=== PATIENT | female | born 1935 | race Caucasian/White ===

== ENCOUNTER → 2016-06-15 | Outpatient (CLI) | payer OTHER, BC | LOC: MMPC 10:00 | PROVIDERS: ATTEND Podiatrist Foot & Ankle Surgery | DX: M79.674 Pain in right toe(s) (principal); M20.41 Other hammer toe(s) (acquired), right foot; M20.42 Other hammer toe(s) (acquired), left foot | CPT/HCPCS: 99203; G0463 ==

== ENCOUNTER 2016-06-29 06:53 | Observation (INO) | payer OTHER, BC ==
[~2016-06-29 06:53] MED LIST: LIDOCAINE W/ SODIUM BICARB 0.5 ML SYR ONE; Lactated Ringers 1,000 ML PRIMARY IV ONE; ceFAZolin Inj 2gm (Premix) 50 ML IV ONE
[2016-06-29] MEDS ORDERED: BUPivacaine Inj 0.5% PF (5mg/ml) 10ml vial ONE (07:44)
[2016-06-29] MEDS ORDERED: Lidocaine Inj 1% 20 ML ONE (07:45)
[2016-06-29] MEDS ORDERED: fentaNYL Inj 100 MCG/2 ML VIAL ONE (08:38)
[2016-06-29] MEDS ORDERED: MIDAZOLAM 5 MG/1 ML ONE (08:38)
[2016-06-29] MEDS ORDERED: KETAMINE 100 MG/1 ML - 5 ML ONE (08:38)
[2016-06-29] MEDS ORDERED: MOXIFLOXACIN 400 MG TABLET PO SCH ×2 (09:00→16:00)
[2016-06-29] MEDS ORDERED: ONDANSETRON 4 MG/2 ML VIAL ONE (11:02)
[2016-06-29] MEDS ORDERED: NORMAL SALINE 10 ML SYRINGE FLUSH IVP PRN ×2 (11:02→13:43)
[2016-06-29] MEDS ORDERED: ONDANSETRON 4 MG/2 ML VIAL IVP ONE (11:25)
[2016-06-29] MEDS ORDERED: IPRATROPIUM/ALBUTEROL SULFATE 3 ML NEB NEB ONE (11:37)
--- NOTE | 2016-06-29 11:38 | GEN.OPNOTE ---
Operative Report Surgeon: Dr. Iron Fried Anesthesia Type: Local, MAC Anesthesia Provider: Mary Hill CRNA Surgery Date: 06/29/16 Preoperative Diagnosis: Hammertoes 2nd digit b/l and 3rd digit left foot Postoperative Diagnosis: same Estimated Blood Loss (mL): 0 Description of Procedure: Under mild sedation the patient was wheeled into the operating room placed on the operating table in supine position a well-padded pneumatic ankle tourniquet was placed about b/l ankles the foot was prepped scrubbed and draped in the usual aseptic manner. Local anesthesia was then used to do a ray blocks of the second digits b/l and third digit on the left foot, with a 1:1 mixture of lidocaine and Marcaine, approximately 15 mL was used. We then used Esmarch bandage to exsanguinate the Rt foot and the ankle tourniquet was inflated. Attention was directed the dorsal aspect of the second digit where linear longitudinal incision was made approximately 4 cm in length the incision was carried down to the level of the PIP joint were arthroplasty of the head of the proximal phalanx was performed and also the base of the middle phalanx. Once this was performed attention was directed to the MP joint where the long extensor tendon was lengthened with a Z-plasty lengthening technique the tendon of the extensor digitorum brevis was also transected. Once this been accomplished the area was flushed K wire was inserted through the middle phalanx out the end of the distal phalanx and retrograded on the proximal phalanx on the second and third digits. The capsule was then reapproximated at the PIP joint with 4-0 nylon on bilateral toes. Once this was accomplished the subcutaneous tissue was reapproximated with 4-0 Vicryl skin was reapproximated and coapted with 4-0 nylon in a running suture technique. The ankle tourniquet was deflated and proper hyperemic response was noted to the toe dry sterile bandage was applied consisting of Mastisol Steri-Strips 4 x 4 gauze, Kerlix and Coban. Attention was then directed the 2nd and 3rd digits on the left foot. Esmarch bandage was used to exsanguinate the foot and the Ankle tourniquet was inflated. An incision approximately 1 cm in length was made over the MP joint this was carried down to level of the long extensor tendon on the left third and fourth digits the tendon was then released with a Igiugig blade. The skin was reapproximated and coapted with 4-0 nylon. Attention was then directed to the plantar aspect of the second digit on the left foot at the DIP joint where a 5mm incision was made and was carried down to level of the long flexor tendon which was transected with a bever blade once this was accomplished the skin was reapproximated and coapted with 4-0 nylon. Local anesthesia was then injected into the first second third interspaces on the left foot consisting of 15 cc of local. Ankle tourniquet was deflated on the left foot and proper hyperemic response noted to the toes. A dry sterile dressing was applied consisting of Adaptic 4 x 4 gauze Kerlix and Coban. Patient tolerated the procedure well following a brief period of postoperative monitoring the patient will be discharged home with written and oral postoperative instructions.
[2016-06-29] MEDS ORDERED: IPRATROPIUM/ALBUTEROL SULFATE 3 ML NEB NEB PRN (11:43)
[2016-06-29] MEDS ORDERED: DEXAMETHASONE SOD PHOSPHATE 4 MG/1 ML VIAL ONE (11:47)
[2016-06-29] MEDS: Prochlorperazine Edisylate Inj 10mg/2ml vial IVP PRN ×2 (12:14→12:39)
--- NOTE | 2016-06-29 12:37 | DI ---
AP CHEST X-RAY, 06/29/2016 11:56 AM : Clinical History: Aspiration during anesthesia. Previous Exam: None at this facility. There is no acute soft tissue or bony abnormality. Mild cardiomegaly is present without CHF. There is a right lower lobe infiltrate consistent with the clinical diagnosis of aspiration. There is a moder ate sized hiatal hernia. Mediastinal structures are otherwise normal. There are no pulmonary nodules. Readin. Right lower lobe aspiration pneumonitis. 2. Mild cardiomegaly without CHF. 3. Moderate-sized hiatal hernia.
[2016-06-29] MEDS ORDERED: LIDOCAINE W/ SODIUM BICARB 0.5 ML SYR SUBD PRN (13:43)
[2016-06-29] MEDS ORDERED: ONDANSETRON 4 MG/2 ML VIAL IVP PRN (13:43)
[2016-06-29] MEDS: Sodium Chloride 0.9% 1,000 ML PRIMARY IV SCH (15:03)
[2016-06-29 16:31] LABS: BASOPHILS # (AUTO) 0.01 10*3/UL; BASOPHILS % (AUTO) 0.1 % (0-1); EOSINOPHILS # (AUTO) 0 10*3/UL; EOSINOPHILS % (AUTO) 0 % (0-8); HEMATOCRIT 39.1 % (37.0-47.0); LYMPHOCYTES # (AUTO) 0.28 10*3/uL; MEAN CORPUSCULAR HEMOGLOBIN 29.2 PG (27-31); MEAN CORPUSCULAR HGB CONC 33.2 g/dL (33-37); MEAN CORPUSCULAR VOLUME 87.9 FL (81-99); MONOCYTES # (AUTO) 0.72 10*3/UL (0.3-0.8); MONOCYTES % (AUTO) 5.9 % (5-15); NEUTROPHILS # (AUTO) 11.13 10*3/UL; NEUTROPHILS % (AUTO) 91.4 % (50-80); RED BLOOD COUNT 4.45 10^6/uL (4.20-5.40)
[2016-06-29 16:39] LABS: CALCIUM 8.5 mg/dL (8.7-10.7); SERUM ALBUMIN 3.2 g/dL (3.5-4.8)
[2016-06-29 16:53] LABS: PLATELET MORPHOLOGY COMMENT NORMAL MORPHOLOGY (NORM); RBC MORPHOLOGY COMMENT NORMAL MORPHOLOGY (NORM); WBC MORPHOLOGY COMMENT NORMAL MORPHOLOGY (NORM)
--- NOTE | 2016-06-29 17:16 | PDOC ---
History and Physical - History of Present Illness Chief Complaint: Shortness of breath aspiration postop History of Present Illness: This very nice 80-year-old female with past medical history significant for depression, hypertension, hypothyroidism, arthritis comes into the hospital admitted by Dr. Fried for outpatient bilateral second digit and third digit hammertoe surgery. Apparently she aspirated and I was called by the nurse clin tech to admit the patient she is doing quite well now eating her dinner she told me she was very cold downstairs in and now she is feeling back to her normal self satting at 96% on 1 L denies chest pain shortness of breath nausea or vomiting Past Medical History Medical History: Hypertension, hypothyroidism, arthritis, depression, hypertension, hypothyroidism Surgical History: Status post hammertoe surgery bilateral second digit as well as third digit hammertoe had cataract surgery, partial removal of colon, hysterectomy Tobacco Use: Never Smoker Substance Use Type: None Medication / Allergies Home Medications: Home Medications Medication Instructions Recorded Confirmed Type Citalopram Hydrobromide 1 tab PO DAILY tab 06/15/16 06/29/16 History [Citalopram Hbr] Diltiazem HCl [Diltiazem 12hr Er] 120 mg PO BID cap 06/15/16 06/29/16 History Levothyroxine Sodium 1 tab PO DAILY tab 06/15/16 06/29/16 History Trimethoprim 100 mg PO QD tab 06/15/16 06/29/16 History Hydrocodone/Acetaminophen 1 - 2 tab PO Q4-6H #35 tab 06/16/16 06/29/16 Clinic [Hydrocodon-Acetaminophen 5-325] Hydrocodone Bit/Acetaminophen 1 - 2 tab PO Q4H PRN #38 tab 06/29/16 Rx [Hydrocodon-Acetaminophen 5-325] Allergies/Adverse Reactions: Allergies Allergy/AdvReac Type Severity Reaction Status Date / Time No Known Allergies Allergy Verified 06/29/16 07:13 Review of Systems - Review of Systems All Systems: Reviewed & No Additional Complaints Except as Stated - Constitutional Constitutional: DENIES: Negative System Review, General Health Excellent, General Health Good, General Health Fair, General Health Poor, Weight Loss, Weight Gain, Weight Change Intentional, Fever/Chills, Night Sweats, Fatigue, Diffuse Arthralgias, Diffuse Myalgias, Malaise, Weakness, Recent Illness, Other , See HPI - Respiratory Respiratory: DENIES: Negative System Review, Cough, Sputum, Dyspnea At Rest, Dyspnea with Exertion, Pleuritic Pain, Hemoptysis, Wheezing, Other, See HPI - Cardiovascular Cardiovascular: DENIES: Negative System Review, Chest Pain, Edema, Syncope, Palpitations, Orthopnea, Paroxysmal Nocturnal Dyspnea, Other, See HPI - Gastrointestinal Gastrointestinal / Abdominal: DENIES: Negative System Review, Nausea, Vomiting, Diarrhea, Constipation, Abdominal Pain, Bloody Stool, Poor Appetite, Heartburn, Regurgitation, Bloating, Lactose Intolerance, Melena, Bright Red Blood Per Rectum, Other, See HPI Exam - Vitals Vital Signs: Vital Signs Temperature 97 F Temperature Source Temporal Artery Scan Pulse Rate [Pulse Oximeter] 72 Pulse Rate 55 Respiratory Rate 17 Blood Pressure [Left Arm] 122/64 Blood Pressure 169/75 Pulse Ox 93 Oxygen Flow Rate 2 Oxygen Delivery Method Nasal Cannula Height 5 ft 6 in Weight 80.739 kg - General General Appearance: POSITIVE: No Acute Distress, Cooperative - Head Head Exam: POSITIVE: Normal Inspection, Normocephalic, Atraumatic - Eye Eye Exam: POSITIVE: Normal Appearance, PERRL, EOMI - Neck Neck Exam: POSITIVE: Normal Inspection, Full ROM - Respiratory Respiratory Exam: POSITIVE: Clear to Auscultation - Bilaterally, Breathing Non Labored, Normal To Percussion, Normal to Percussion and Palpation - Cardiovascular Cardiovascular Exam: POSITIVE: RRR, No Murmur, No Clicks, No Gallops - GI/Abdominal GI/Abdominal Exam: POSITIVE: Non Tender, Non Distended, Soft - Extremities Extremities Exam: POSITIVE: No Clubbing Present, No Edema Present Results - Labs CBC and BMP: 06/29/16 16:27 06/29/16 16:27 Labs - Last 24 Hours: Laboratory Results 06/29/16 Range/Units 16:27 WBC 12.18 H (4.8-10.8) 10^3/uL RBC 4.45 (4.20-5.40) 10^6/uL Hgb 13.0 (12.0-16.0) g/dL Hct 39.1 (37.0-47.0) % MCV 87.9 (81-99) FL MCH 29.2 (27-31) PG MCHC 33.2 (33-37) g/dL RDW Std Deviation 42.1 (39-50) fL RDW Coeff of Nayely 13.3 (11.5-14.5) % Plt Count 265 (140-350) 10*3/uL MPV 9.0 (7.4-12.2) FL Immature Gran % (Auto) 0.3 (0-5) % Neut % (Auto) 91.4 H (50-80) % Lymph % (Auto) 2.3 L (10-50) % [place] % (Auto) 5.9 (5-15) % Eos % (Auto) 0 (0-8) % Baso % (Auto) 0.1 (0-1) % Immature Gran # (Auto) 0.04 10*3/UL Neut # (Auto) 11.13 10*3/UL Lymph # (Auto) 0.28 10*3/uL [place] # (Auto) 0.72 (0.3-0.8) 10*3/UL Eos # (Auto) 0 10*3/UL Baso # (Auto) 0.01 10*3/UL WBC Morphology Comment Normal morphology (NORM) Plt Morphology Comment Normal morphology (NORM) RBC Morph Comment Normal morphology (NORM) Sodium 134 L (135-145) meq/L Potassium 3.6 L (3.8-5.2) meq/L Chloride 102 (98-112) meq/L Carbon Dioxide 26 (23-33) meq/L Anion Gap 6 (5-20) BUN 14 (7-22) mg/dL Creatinine 0.7 (0.50-1.20) mg/dL Estimated GFR (>60 ml/min/1.73m(2)) BUN/Creatinine Ratio 20.00 (6-20) Glucose 120 H (78-110) mg/dL Calculated Osmolality 279.0 (267-292) mOsm/kg Calcium 8.5 L (8.7-10.7) mg/dL Total Bilirubin 0.8 (0.3-1.2) mg/dL AST 20 (8-39) IU/L ALT 24 (9-52) IU/L Alkaline Phosphatase 59 (38-126) IU/L Total Protein 6.2 (6.1-8.0) g/dL Albumin 3.2 L (3.5-4.8) g/dL Globulin 3.0 (2.50-4.10) g/dL Albumin/Globulin Ratio 1.00 L (1.3-2.0) mg/g Assessment and Plan - Patient Problems (1) Aspiration pneumonitis Current Visit: Yes Status: Acute Comment: Infiltrate on x-ray and doubt this is bacterial nevertheless does have a white count with a left shift will start Avelox 400 mg by mouth for 7 days total (2) Hypokalemia Current Visit: Yes Status: Acute Comment: Place of 40 [address] twice a day (3) Hypothyroidism Current Visit: Yes Status: Acute Comment: Continue usual meds Photo / Body Diagrams - Uploaded Photos Uploaded Photos:
[2016-06-29] MEDS ORDERED: HYDROcodone-APAP 5 MG -325 MG TABLET PO PRN (19:41)
[2016-06-29] MEDS: HYDROcodone-APAP 5 MG -325 MG TABLET PO SCH (19:43)
[2016-06-29] MEDS: POTASSIUM CHLORIDE 20 MEQ TAB PO SCH (19:58)
[2016-06-29] MEDS: DILTIAZEM HCL 120 MG PO SCH (20:01)
[2016-06-30] MEDS: Sodium Chloride 0.9% 1,000 ML PRIMARY IV SCH ×2 (01:31→05:03)
[2016-06-30] MEDS: LEVOTHYROXINE 88 MCG TABLET PO SCH ×2 (04:14→05:02)
[2016-06-30 05:05] LABS: BASOPHILS # (AUTO) 0 10*3/UL; BASOPHILS % (AUTO) 0 % (0-1); EOSINOPHILS # (AUTO) 0 10*3/UL; EOSINOPHILS % (AUTO) 0 % (0-8); HEMATOCRIT 37.2 % (37.0-47.0); HEMOGLOBIN 12.3 g/dL (12.0-16.0); LYMPHOCYTES # (AUTO) 0.99 10*3/uL; MEAN CORPUSCULAR HEMOGLOBIN 29.3 PG (27-31); MEAN CORPUSCULAR HGB CONC 33.1 g/dL (33-37); MEAN CORPUSCULAR VOLUME 88.6 FL (81-99); MEAN PLATELET VOLUME 9.9 FL (7.4-12.2); MONOCYTES # (AUTO) 1.13 10*3/UL (0.3-0.8); MONOCYTES % (AUTO) 5.8 % (5-15); NEUTROPHILS # (AUTO) 17.46 10*3/UL; NEUTROPHILS % (AUTO) 88.9 % (50-80)
[2016-06-30 05:10] LABS: PLATELET MORPHOLOGY COMMENT NORMAL MORPHOLOGY (NORM); RBC MORPHOLOGY COMMENT NORMAL MORPHOLOGY (NORM); WBC MORPHOLOGY COMMENT NORMAL MORPHOLOGY (NORM)
[2016-06-30 05:12] LABS: BUN/CREATININE RATIO 21.66 (6-20); CALCIUM 8.6 mg/dL (8.7-10.7)
[2016-06-30 07:47] VITALS: RESP 20; TEMP 97.2
--- NOTE | 2016-06-30 08:44 | CRNA.PROGR ---
Anesthesia Note Anesthesia Progress Note: Sitting up in chair eating breakfast. She's cheerful. No oxygen supplementation. Room air SPO2--91%. Denies shortness of breath. Went over cause of her coughing-aspiration. She's pleased with care. I anticipate her going home today. Vital Signs (24 hrs) Temp Pulse Resp BP Pulse Ox 06/30/16 07:45 97.2 F 76 20 126/49 92 06/30/16 05:17 92 06/30/16 04:52 98.3 F 77 18 124/49 92 06/30/16 01:00 97.8 F 72 16 122/44 90 06/29/16 21:00 98.1 F 71 16 135/54 91 06/29/16 16:20 97 F 72 17 122/64 93 06/29/16 15:34 96 06/29/16 13:57 98.9 F 81 28 H 138/46 89 Mary Hill MS, [employer]
[2016-06-30] MEDS: POTASSIUM CHLORIDE 20 MEQ TAB PO SCH (08:55)
[2016-06-30] MEDS ORDERED: Pantoprazole Inj 40 MG in Normal Saline Flush 10 ML IVP SCH (09:00)
[2016-06-30] MEDS ORDERED: Amoxicill/Clav 875/125mg Tab 1 TAB TAB PO SCH (09:00)
[2016-06-30] MEDS ORDERED: CITALOPRAM 20 MG TABLET PO SCH (09:00)
--- NOTE | 2016-06-30 09:02 | DCSUMMARY ---
Hospitalization Summary Hospital Course: Final Discharge Diagnosis: Current Visit Problems Problem Status Priority Diagnosed Code Aspiration pneumonitis Acute J69.0 Hypokalemia Acute E87.6 Hypothyroidism Acute E03.9 Diagnostic Data, Laboratory Data, and Procedures of Signifigance: Laboratory Results 06/29/16 06/30/16 Range/Units 16:27 04:17 WBC 12.18 H 19.63 H (4.8-10.8) 10^3/uL RBC 4.45 4.20 (4.20-5.40) 10^6/uL Hgb 13.0 12.3 (12.0-16.0) g/dL Hct 39.1 37.2 (37.0-47.0) % MCV 87.9 88.6 (81-99) FL MCH 29.2 29.3 (27-31) PG MCHC 33.2 33.1 (33-37) g/dL RDW Std Deviation 42.1 41.7 (39-50) fL RDW Coeff of Nayely 13.3 13.2 (11.5-14.5) % Plt Count 265 254 (140-350) 10*3/uL MPV 9.0 9.9 (7.4-12.2) FL Immature Gran % (Auto) 0.3 0.3 (0-5) % Neut % (Auto) 91.4 H 88.9 H (50-80) % Lymph % (Auto) 2.3 L 5.0 L (10-50) % [place] % (Auto) 5.9 5.8 (5-15) % Eos % (Auto) 0 0 (0-8) % Baso % (Auto) 0.1 0 (0-1) % Immature Gran # (Auto) 0.04 0.05 10*3/UL Neut # (Auto) 11.13 17.46 10*3/UL Lymph # (Auto) 0.28 0.99 10*3/uL [place] # (Auto) 0.72 1.13 H (0.3-0.8) 10*3/UL Eos # (Auto) 0 0 10*3/UL Baso # (Auto) 0.01 0 10*3/UL WBC Morphology Comment Normal morphology Normal morphology (NORM) Plt Morphology Comment Normal morphology Normal morphology (NORM) RBC Morph Comment Normal morphology Normal morphology (NORM) Sodium 134 L 136 (135-145) meq/L Potassium 3.6 L 4.5 (3.8-5.2) meq/L Chloride 102 104 (98-112) meq/L Carbon Dioxide 26 26 (23-33) meq/L Anion Gap 6 6 (5-20) BUN 14 13 (7-22) mg/dL Creatinine 0.7 0.6 (0.50-1.20) mg/dL Estimated GFR (>60 ml/min/1.73m(2)) BUN/Creatinine Ratio 20.00 21.66 H (6-20) Glucose 120 H 131 H (78-110) mg/dL Calculated Osmolality 279.0 283.0 (267-292) mOsm/kg Calcium 8.5 L 8.6 L (8.7-10.7) mg/dL Total Bilirubin 0.8 0.8 (0.3-1.2) mg/dL AST 20 15 (8-39) IU/L ALT 24 20 (9-52) IU/L Alkaline Phosphatase 59 47 (38-126) IU/L Total Protein 6.2 6.0 L (6.1-8.0) g/dL Albumin 3.2 L 3.0 L (3.5-4.8) g/dL Globulin 3.0 3.0 (2.50-4.10) g/dL Albumin/Globulin Ratio 1.00 L 1.00 L (1.3-2.0) mg/g History and Physical pertinent to Admission: Course of Hospitalization: This is a very nice 80-year-old female who does not look her stated age had some hammertoe surgery and after her operation because of her anesthesia she had an aspiration episode confirmed by x-ray patient was started on Avelox by mouth since she was not sick and was able to still tolerate by mouth she had no nausea no vomiting looks back to her baseline no fever respiratory rate is below 24 blood pressure is stable no fever she does have a white count of 19, 000 but this is expected decrease neutrophils patient is really stable and really wants to go home I will be discharging her home on Augmentin 875 one 25 twice a day for 7 days she will follow-up in the [facility] for a CBC on Sunday or Sunday she also was advised if she develops fever or gets sick to return to the emergency room or go see her doctor patient understands and agrees also hypokalemia was corrected and is now 4.5 she has not required any pain meds for her toe surgery she will be following up with Dr. Fried's in regards to her surgery On the date of discharge, the patient was examined: Gen.: No acute distress, alert, nontoxic Heart: Regular rate and rhythm, no murmurs, clicks, gallops, or rubs Lungs: Clear to auscultation bilaterally, breathing is nonlabored Abdomen/GI: Normal tones on auscultation, soft, nontender, nondistended Musculoskeletal/extremities: No clubbing, cyanosis, or edema Vitals reviewed and are listed below Vital Signs (24 hrs) Temp Pulse Resp BP Pulse Ox 06/30/16 07:45 97.2 F 76 20 126/49 92 06/30/16 05:17 92 06/30/16 04:52 98.3 F 77 18 124/49 92 06/30/16 01:00 97.8 F 72 16 122/44 90 06/29/16 21:00 98.1 F 71 16 135/54 91 06/29/16 16:20 97 F 72 17 122/64 93 06/29/16 15:34 96 06/29/16 13:57 98.9 F 81 28 H 138/46 89 Respirations are now 18 taken by myself Assessment and Plan: 1. As per discharge assessments above 2. Disposition: Home 3. Condition on discharge, stable and improved. 4. Diet: regular diet 5. Activities: resume normal activities 6. Follow-Up: 1. PCP in [place] for CBC 2. 7. Medications at the Time of Discharge: Home Medications Medication Instructions Recorded Confirmed Type Citalopram Hydrobromide 1 tab PO DAILY tab 06/15/16 06/29/16 History [Citalopram HBr] Diltiazem HCl [Diltiazem 12Hr ER] 120 mg PO BID cap 06/15/16 06/29/16 History Levothyroxine Sodium 1 tab PO DAILY tab 06/15/16 06/29/16 History Trimethoprim 100 mg PO QD tab 06/15/16 06/29/16 History Hydrocodone/Acetaminophen 1 - 2 tab PO Q4-6H #35 tab 06/16/16 06/29/16 Clinic [Hydrocodon-Acetaminophen 5-325] Amoxicill/Clav 875/125mg 1 tab PO BID #14 tab 06/30/16 Rx [Augmentin 875/125mg] 8. Time, care, counseling and coordination of care for this discharge is greater than 30 minutes. Exam - Vitals Vital Signs: Vital Signs Temperature 97.2 F Temperature Source Temporal Artery Scan Pulse Rate [Pulse Oximeter] 76 Pulse Rate 55 Respiratory Rate 20 Blood Pressure [Left Arm] 126/49 Blood Pressure 169/75 Pulse Ox 92 Oxygen Flow Rate 2 Oxygen Delivery Method Room Air Height 5 ft 6 in Weight 80.739 kg Patient Problems - Patient Problem List (1) Aspiration pneumonitis Current Visit: Yes Status: Acute (2) Hypokalemia Current Visit: Yes Status: Acute (3) Hypothyroidism Current Visit: Yes Status: Acute
[2016-06-30] MEDS: DILTIAZEM HCL 120 MG PO SCH (09:49)
--- NOTE | 2016-07-03 10:37 | DI ---
RIGHT FOOT, 06/29/2016 11:13 AM: Clinical History: Hammertoes deformity. Previous Exam: None at this facility. AP and lateral views are submitted. There is a K wire inserted through the phalanges of the second to e with evidence of osteotomies on both sides of the DIP joint. The remainder of the foot exam is norm al. Reading: Status post surgical correction of a hammertoe deformity of the second toe.
--- NOTE | 2016-07-03 12:39 | PT AM DAY ---
AM - Inpatient Observation S: The patient states she has three stairs to get into her house. The patient states she is feeling good. O: The patient ambulated 75 feet to stairway and then ascended and descended 12 stairs. The patient then ambulated 75 feet back to her room. A: The patient was able to perform gait and stair training with ease. P: No further therapy is indicated at this time. MTDD
== END 2016-06-30 11:25 | disposition home or self-care (01) ==
LOC: SDSC 06:53 → MED/SURG 13:19
PROVIDERS: ADMIT Internal Medicine; ATTEND Internal Medicine
DX: J95.4 Chemical pneumonitis due to anesthesia (principal); M20.42 Other hammer toe(s) (acquired), left foot; Y83.8 Other surgical procedures as the cause of abnormal reaction of the patient, or of later complication, without mention of misadventure at the time of the procedure; Y79.3 Surgical instruments, materials and orthopedic devices (including sutures) associated with adverse incidents; Y92.530 Ambulatory surgery center as the place of occurrence of the external cause; E87.6 Hypokalemia; E03.9 Hypothyroidism, unspecified
CPT/HCPCS: 28285 ×2; 36415; 71010; 73620; 76000; 80053 ×2; 85025 ×2; 94150; 94640; 94761 ×2; 96374; J0690; J2704; J3010; J7620; 97116; J0780; J1100; J2001; J2250; J2405; J3490; J7030; J7120

== ENCOUNTER → 2016-07-06 | Outpatient (CLI) | payer OTHER, BC | LOC: MMPC 10:00 | PROVIDERS: ATTEND Podiatrist Foot & Ankle Surgery | DX: M20.42 Other hammer toe(s) (acquired), left foot (principal); M20.41 Other hammer toe(s) (acquired), right foot ==

== ENCOUNTER → 2016-07-13 | Outpatient (CLI) | payer OTHER, BC | LOC: MMPC 10:00 | PROVIDERS: ATTEND Podiatrist Foot & Ankle Surgery | DX: Z48.02 Encounter for removal of sutures (principal) ==